=== PATIENT | male | born 1950 | race Caucasian/White ===

== ENCOUNTER → 2016-09-05 09:06 | Outpatient (CLI) | payer OTHER ==
[2015-09-12 13:05] VITALS: BMI 19.9
[~2016-09-05 09:06] MED LIST: ASPIRIN EC81 M1 PO; COREG 3.1253.125 MG PO; COZAAR25 MG PO; CYCLOBENZAPRINE10 MG PO; FUROSEMIDE20 MG PO; OMEPRAZOLE20 M1 PO; OXYCODONE HCL5 MG PO; PERCOCET 5-3251 TAB PO; POTASSIUM99 M1 PO; PROVENTIL HFA6.7 GM INH
== END | disposition home or self-care (01) ==
LOC: D.CT 09:06
DX: R10.9 Unspecified abdominal pain (principal); K55.9 Vascular disorder of intestine, unspecified

== ENCOUNTER → 2016-09-20 09:06 | Outpatient (CLI) | payer OTHER ==
[2015-09-12 13:05] VITALS: BMI 19.9
== END | disposition home or self-care (01) ==
LOC: D.MRI 09-18 09:00
DX: R11.0 Nausea (principal)

== ENCOUNTER 2017-01-06 11:36 | Day surgery (SDC) | payer OTHER ==
[~2017-01-06] VITALS: Ht 167.6 cm; Wt 52.3 kg
[2017-01-06 12:53] LABS: BASOPHILS 0.2 % (0-2); EOSINOPHILS 0.9 % (0-7); HEMATOCRIT 38.8 % (42.0-54.0); HEMOGLOBIN 13.7 g/dL (13.5-17.5); LYMPHOCYTES 34.8 % (15-50); MCH 35.8 pg (26.0-34.0); MCHC 35.3 g/dL (31.0-37.0); MCV 101.3 fL (80.0-100.0); MEAN PLATELET VOLUME 9.3 fL (7.4-10.4); MONOCYTES 5.6 % (2-11); NEUTROPHILS 58.5 % (40-80); RBC 3.83 10x6/uL (4.20-6.10); RDW 12.8 % (11.5-14.5); WBC 5.4 10x3/uL (4.8-10.8)
[2017-01-06 13:00] LABS: PLATELET COUNT 268 10x3/uL (130-400)
[2017-01-06] MEDS ORDERED: ALDACTONE25 MG PO (13:02)
[2017-01-06] MEDS ORDERED: METOPROLOL TART25 MG (13:02)
[2017-01-06 13:10] VITALS: BP 147/82; Ht 167.6 cm; Wt 52.3 kg
[2017-01-06 13:14] LABS: ALBUMIN 3.8 g/dL (3.4-5.0); ALKALINE PHOSPHATASE 106 U/L (46-116); ALT (SGPT) 19 U/L (10-68); BILIRUBIN - TOTAL 0.46 mg/dL (0.2-1.3); CALC OSMOLALITY 271 mosm/kg (275-300); CALCIUM 9.2 mg/dL (8.5-10.1); CARBON DIOXIDE 27.3 mmol/L (21.0-32.0); CHLORIDE - SERUM 102 mmol/L (98-107); CREATININE - SERUM 0.9 mg/dL (0.6-1.3); GLUCOSE 98 mg/dL (74-106); POTASSIUM - SERUM 3.9 mmol/L (3.5-5.1); PROTEIN - SERUM 6.8 g/dL (6.4-8.2); SODIUM 137 mmol/L (136-145); UREA NITROGEN 8 mg/dL (7-18); eGFR NON AFRICAN AMERICAN 90 mL/min (90-120)
[2017-01-06 13:42] LABS: INR 1.05 (0.85-1.17); PROTIME 13.6 SECONDS (11.6-15.0)
--- NOTE | 2017-01-06 16:03 | NUR ---
120 SECONDS FLUORO TIME AND 80 CC CONTRAST USED
--- NOTE | 2017-01-06 16:27 | NUR ---
NOTIED THAT PT HAS HEART PACER IN LEFT UPPER CHEST AND PACER SPIKES NOTIED ON MONITOR. HR IS 76 NSR
--- NOTE | 2017-01-06 17:28 | NUR ---
PATIENT WALKING AROUND ROOM WITHOUT DIZZINES, AMBULATES TO BATHROOM AND VOIDS IN TOILET. DENIES COMPLAINTS. PIV DC'D WITH TIP INTACT. PATIENT DRESSING IN PERSONAL CLOTHING
--- NOTE | 2017-01-06 17:50 | NUR ---
DISCHARGE INSTRUCTIONS REVIEWED WITH PATIENT. DISCHARGED HOME VIA WHEELCHAIR TO PRIVATE VEHICLE WITH BROTHER
== END 2017-01-06 17:50 | disposition home or self-care (01) ==
LOC: D.OPS 11:36
PROVIDERS: Internal Medicine Gastroenterology
DX: R10.11 Right upper quadrant pain (principal); F17.200 Nicotine dependence, unspecified, uncomplicated; I25.10 Atherosclerotic heart disease of native coronary artery without angina pectoris; I10 Essential (primary) hypertension; J44.9 Chronic obstructive pulmonary disease, unspecified; Z95.5 Presence of coronary angioplasty implant and graft; K21.9 Gastro-esophageal reflux disease without esophagitis; Z01.812 Encounter for preprocedural laboratory examination

== ENCOUNTER → 2017-04-30 12:40 | Outpatient (CLI) | payer OTHER ==
[2017-01-06 13:10] VITALS: BMI 18.6
[~2017-04-30 12:40] MED LIST changes: +ALDACTONE25 MG PO; +METOPROLOL TART25 MG
== END | disposition home or self-care (01) ==
LOC: D.CT 12:40
DX: R10.11 Right upper quadrant pain (principal)

== ENCOUNTER 2017-08-09 18:34 | Inpatient (IN) | payer OTHER ==
[~2017-08-09] VITALS: Ht 167.6 cm; Wt 50.0 kg
[2017-08-09 19:21] LABS: BASOPHILS 0.2 % (0-2); HEMATOCRIT 38.1 % (42.0-54.0); HEMOGLOBIN 13.6 g/dL (13.5-17.5); IMMATURE GRANULOCYTES 0.3 % (0-5); LYMPHOCYTES 11.7 % (15-50); MCH 35.1 pg (26.0-34.0); MCHC 35.7 g/dL (31.0-37.0); MCV 98.2 fL (80.0-100.0); MEAN PLATELET VOLUME 9.3 fL (7.4-10.4); MONOCYTES 7.2 % (2-11); NEUTROPHILS 79.6 % (40-80); PLATELET COUNT 314 10x3/uL (130-400); RBC 3.88 10x6/uL (4.20-6.10); RDW 13.2 % (11.5-14.5); WBC 12.9 10x3/uL (4.8-10.8)
[2017-08-09 20:52] LABS: ALBUMIN 3.6 g/dL (3.4-5.0); ALKALINE PHOSPHATASE 153 U/L (46-116); ALT (SGPT) 16 U/L (10-68); BILIRUBIN - TOTAL 0.52 mg/dL (0.2-1.3); CALC OSMOLALITY 272 mosm/kg (275-300); CALCIUM 9.6 mg/dL (8.5-10.1); CARBON DIOXIDE 25.8 mmol/L (21.0-32.0); CHLORIDE - SERUM 99 mmol/L (98-107); CREATININE - SERUM 0.7 mg/dL (0.6-1.3); GLUCOSE 108 mg/dL (74-106); POTASSIUM - SERUM 4.1 mmol/L (3.5-5.1); PROTEIN - SERUM 7.8 g/dL (6.4-8.2); SODIUM 137 mmol/L (136-145); UREA NITROGEN 6 mg/dL (7-18); eGFR NON AFRICAN AMERICAN > 90 mL/min (90-120)
[2017-08-09 21:02] LABS: PRO BNP 898 pg/mL (0-125); TROPONIN-I 0.042 ng/mL (0.000-0.060)
[2017-08-10 02:30] VITALS: BP 108/54
[2017-08-10 05:00] VITALS: BP 108/53
[2017-08-10 05:07] VITALS: BMI 18.6
[2017-08-10 09:07] VITALS: BP 142/67
[2017-08-10 12:51] VITALS: BP 113/52
[2017-08-10 16:38] LABS: CKMB 0.3 U/L (0.0-3.6); CREATINE KINASE 62 UL (21-232); TROPONIN-I < 0.017 ng/mL (0.000-0.060)
[2017-08-10 16:41] VITALS: BP 118/71
[2017-08-10 17:59] LABS: APPEARANCE CLEAR (CLEAR); BILIRUBIN NEGATIVE (NEGATIVE); COLOR YELLOW (YELLOW); GLUCOSE NEGATIVE (NEGATIVE); KETONE NEGATIVE (NEGATIVE); NITRITE NEGATIVE (NEGATIVE); PROTEIN NEGATIVE (NEGATIVE); SPECIFIC GRAVITY 1.005 (1.005-1.020); UROBILINOGEN NORMAL (NORMAL)
[2017-08-10 18:40] LABS: CALC OSMOLALITY 276 mosm/kg (275-300); CALCIUM 8.9 mg/dL (8.5-10.1); CARBON DIOXIDE 20.5 mmol/L (21.0-32.0); CHLORIDE - SERUM 105 mmol/L (98-107); CREATININE - SERUM 0.7 mg/dL (0.6-1.3); GLUCOSE 106 mg/dL (74-106); POTASSIUM - SERUM 3.7 mmol/L (3.5-5.1); SODIUM 140 mmol/L (136-145); eGFR NON AFRICAN AMERICAN > 90 mL/min (90-120)
[2017-08-10 18:48] LABS: UREA NITROGEN 8 mg/dL (7-18)
[2017-08-10 20:00] VITALS: BP 117/63
[2017-08-10 21:33] LABS: BASOPHILS 0.1 % (0-2); EOSINOPHILS 0.5 % (0-7); HEMATOCRIT 33.3 % (42.0-54.0); HEMOGLOBIN 11.9 g/dL (13.5-17.5); IMMATURE GRANULOCYTES 0.2 % (0-5); LYMPHOCYTES 23.3 % (15-50); MCH 34.8 pg (26.0-34.0); MCHC 35.7 g/dL (31.0-37.0); MCV 97.4 fL (80.0-100.0); MEAN PLATELET VOLUME 9.4 fL (7.4-10.4); MONOCYTES 9.1 % (2-11); NEUTROPHILS 66.8 % (40-80); PLATELET COUNT 332 10x3/uL (130-400); RBC 3.42 10x6/uL (4.20-6.10); RDW 13.6 % (11.5-14.5)
[2017-08-10 21:39] LABS: WBC 8.4 10x3/uL (4.8-10.8)
[2017-08-10 21:55] LABS: CKMB 0.2 U/L (0.0-3.6); CREATINE KINASE 81 UL (21-232); TROPONIN-I 0.019 ng/mL (0.000-0.060)
[2017-08-11 01:00] VITALS: BP 101/51
[2017-08-11 03:34] LABS: BASOPHILS 0.1 % (0-2); HEMOGLOBIN 11.4 g/dL (13.5-17.5); IMMATURE GRANULOCYTES 0.1 % (0-5); LYMPHOCYTES 25.9 % (15-50); MCH 34.9 pg (26.0-34.0); MCHC 35.6 g/dL (31.0-37.0); MCV 97.9 fL (80.0-100.0); MEAN PLATELET VOLUME 9.3 fL (7.4-10.4); MONOCYTES 9.6 % (2-11); NEUTROPHILS 63.3 % (40-80); PLATELET COUNT 337 10x3/uL (130-400); RBC 3.27 10x6/uL (4.20-6.10); RDW 13.6 % (11.5-14.5); WBC 9.1 10x3/uL (4.8-10.8)
[2017-08-11 04:00] VITALS: BP 145/78
[2017-08-11 04:00] LABS: CALC OSMOLALITY 276 mosm/kg (275-300); CALCIUM 8.6 mg/dL (8.5-10.1); CHLORIDE - SERUM 105 mmol/L (98-107); CKMB 0.4 U/L (0.0-3.6); CREATINE KINASE 104 UL (21-232); CREATININE - SERUM 0.7 mg/dL (0.6-1.3); GLUCOSE 105 mg/dL (74-106); SODIUM 140 mmol/L (136-145); TROPONIN-I 0.022 ng/mL (0.000-0.060); UREA NITROGEN 7 mg/dL (7-18); eGFR NON AFRICAN AMERICAN > 90 mL/min (90-120)
[2017-08-11 04:01] LABS: CARBON DIOXIDE 26.5 mmol/L (21.0-32.0); POTASSIUM - SERUM 2.8 mmol/L (3.5-5.1)
[2017-08-11 08:52] VITALS: BP 134/72
[2017-08-11 11:29] VITALS: BP 126/73
[2017-08-11 12:31] VITALS: Ht 167.6 cm; Wt 50.0 kg
[2017-08-11 16:15] VITALS: BP 141/78
== END 2017-08-11 18:28 | disposition home or self-care (01) | DRG 193 ==
LOC: D.ER 18:34 → D.EDHOLD 20:47 → D.M2 20:47
PROVIDERS: Emergency Medicine; Internal Medicine Cardiovascular Disease; Internal Medicine Nephrology
DX: J18.9 Pneumonia, unspecified organism (principal); J96.21 Acute and chronic respiratory failure with hypoxia; I50.23 Acute on chronic systolic (congestive) heart failure; J44.0 Chronic obstructive pulmonary disease with (acute) lower respiratory infection; J44.1 Chronic obstructive pulmonary disease with (acute) exacerbation; F17.203 Nicotine dependence unspecified, with withdrawal; I11.0 Hypertensive heart disease with heart failure; I25.10 Atherosclerotic heart disease of native coronary artery without angina pectoris; Z95.5 Presence of coronary angioplasty implant and graft; Z95.0 Presence of cardiac pacemaker; D64.9 Anemia, unspecified; F41.9 Anxiety disorder, unspecified

== ENCOUNTER 2019-08-22 15:18 | Emergency (ER) | payer OTHER ==
[2019-08-22 15:30] VITALS: Ht 167.6 cm
[2019-08-22 16:37] LABS: HEMATOCRIT 38.4 % (42.0-54.0); LYMPHOCYTES 30.9 % (15-50); MCHC 33.9 g/dL (31.0-37.0); MCV 100.5 fL (80.0-100.0); MEAN PLATELET VOLUME 9.1 fL (7.4-10.4); NEUTROPHILS 62.2 % (40-80); RBC 3.82 10x6/uL (4.20-6.10); RDW 14.6 % (11.5-14.5); WBC 5.6 10x3/uL (4.8-10.8)
[2019-08-22 16:38] LABS: PLATELET COUNT 253 10x3/uL (130-400)
[2019-08-22 16:51] LABS: CALC OSMOLALITY 276 mosm/kg (275-300); CALCIUM 9.6 mg/dL (8.5-10.1); CARBON DIOXIDE 26.4 mmol/L (21.0-32.0); CHLORIDE - SERUM 105 mmol/L (98-107); CREATININE - SERUM 1.1 mg/dL (0.6-1.3); GLUCOSE 104 mg/dL (74-106); POTASSIUM - SERUM 3.7 mmol/L (3.5-5.1); SODIUM 140 mmol/L (136-145); UREA NITROGEN 6 mg/dL (7-18); eGFR NON AFRICAN AMERICAN 71 mL/min (90-120)
[2019-08-22 16:52] LABS: APTT 34.3 SECONDS (22.8-39.4); INR 1.06 (0.85-1.17); PROTIME 13.7 SECONDS (11.6-15.0)
[2019-08-22 17:08] LABS: ALBUMIN 3.8 g/dL (3.4-5.0); ALKALINE PHOSPHATASE 124 U/L (30-120); ALT (SGPT) 17 U/L (10-68); AMYLASE - SERUM 21 U/L (25-115); BILIRUBIN - TOTAL 0.76 mg/dL (0.2-1.3); CKMB 1.9 U/L (0.0-3.6); CREATINE KINASE 124 UL (21-232); TROPONIN-I < 0.017 ng/mL (0.000-0.060)
[2019-08-22 17:09] LABS: LIPASE 21 U/L (73-393)
[2019-08-22] MEDS ORDERED: ZOFRAN ODT4 MG/UDTAB PO (17:15)
[2019-08-22 17:45] VITALS: BP 136/82
== END 2019-08-22 17:45 | disposition home or self-care (01) ==
LOC: D.ER 15:18
PROVIDERS: Family Medicine
DX: R11.0 Nausea (principal); D64.9 Anemia, unspecified; R10.13 Epigastric pain; I11.0 Hypertensive heart disease with heart failure; I50.9 Heart failure, unspecified; J44.9 Chronic obstructive pulmonary disease, unspecified

== ENCOUNTER 2019-09-13 07:25 | Observation (INO) | payer OTHER ==
[~2019-09-13] VITALS: Ht 167.6 cm; Wt 50.0 kg
[~2019-09-13 07:25] MED LIST changes: -METOPROLOL TART25 MG; +METOPROLOL TART25 MG PO; +ZOFRAN ODT4 MG/UDTAB PO
[2019-09-13 07:55] LABS: BASOPHILS 0.1 % (0-2); EOSINOPHILS 0.9 % (0-7); HEMATOCRIT 37.8 % (42.0-54.0); HEMOGLOBIN 13.5 g/dL (13.5-17.5); IMMATURE GRANULOCYTES 0.2 % (0-5); LYMPHOCYTES 19.8 % (15-50); MCH 33.8 pg (26.0-34.0); MCHC 35.7 g/dL (31.0-37.0); MCV 94.5 fL (80.0-100.0); MEAN PLATELET VOLUME 9.2 fL (7.4-10.4); MONOCYTES 8.3 % (2-11); NEUTROPHILS 70.7 % (40-80); PLATELET COUNT 277 10x3/uL (130-400); RDW 12.9 % (11.5-14.5); WBC 8.5 10x3/uL (4.8-10.8)
[2019-09-13 08:07] LABS: APTT 33.1 SECONDS (22.8-39.4); INR 1.04 (0.85-1.17); PROTIME 13.6 SECONDS (11.6-15.0)
[2019-09-13 08:08] LABS: CALC OSMOLALITY 250 mosm/kg (275-300); CALCIUM 9.2 mg/dL (8.5-10.1); CARBON DIOXIDE 26.5 mmol/L (21.0-32.0); CHLORIDE - SERUM 95 mmol/L (98-107); CREATININE - SERUM 0.9 mg/dL (0.6-1.3); GLUCOSE 110 mg/dL (74-106); POTASSIUM - SERUM 3.9 mmol/L (3.5-5.1); SODIUM 126 mmol/L (136-145); UREA NITROGEN 4 mg/dL (7-18); eGFR NON AFRICAN AMERICAN 89 mL/min (90-120)
[2019-09-13] MEDS ORDERED: COZAAR25 MG PO (08:13)
[2019-09-13 08:22] LABS: ALKALINE PHOSPHATASE 96 U/L (30-120); ALT (SGPT) 18 U/L (10-68); AMYLASE - SERUM 39 U/L (25-115); BILIRUBIN - TOTAL 0.59 mg/dL (0.2-1.3); CKMB 1.5 U/L (0.0-3.6); CREATINE KINASE 69 UL (21-232); MAGNESIUM - SERUM 1.6 mg/dL (1.8-2.4); PROTEIN - SERUM 6.9 g/dL (6.4-8.2)
[2019-09-13 08:23] LABS: LIPASE 31 U/L (73-393); TROPONIN-I < 0.017 ng/mL (0.000-0.060)
[2019-09-13 08:37] VITALS: BP 161/99
--- NOTE | 2019-09-13 09:38 | NUR ---
RECEIVED PT TO ROOM 2116 VIA WHEELCHAIR, PT A/O X4, RESP EVEN AND NONLABORED ON RA. RT FA IV INFUSING NS AT 100CC/HR. ORIENTED PT TO ROOM AND CALL LIGHT. WILL ASSESS PT AND START PLAN OF CARE.
[2019-09-13] MEDS ORDERED: FLOMAX0.4 MG PO (09:47)
[2019-09-13 10:09] VITALS: BMI 17.8
[2019-09-13 10:11] VITALS: Ht 167.6 cm; Wt 50.0 kg
--- NOTE | 2019-09-13 10:17 | NUR ---
PT C/O STILL HURTING AND THAT MORPHINE DID NOTHING FOR HIS PAIN. SPOKE WITH DUY NOGUERA AND NOTIFIED HER OF PT'S COMPLAINT. NEW ORDER TO D/C MORHINE AND START 0.5MG OF DILAUDID Q4PRN.
--- NOTE | 2019-09-13 10:19 | NUR ---
PT TO CT.
[2019-09-13 10:41] VITALS: BP 155/69
--- NOTE | 2019-09-13 10:51 | NUR ---
GAVE 0.5MG OF DILAUDID FOR PAIN LEVEL OF 8/10. PT DENIES ANY OTHER NEEDS AT THIS TIME. CALL LIGHT IN REACH, NAD NOTED, WILL CONTINUE TO MONITOR.
--- NOTE | 2019-09-13 12:51 | NUR ---
PT RESTING COMFORTABLY IN BED, DENIES ANY NEEDS AT THIS TIME.
[2019-09-13 13:14] VITALS: BP 114/67
[2019-09-13 14:36] LABS: CREATINE KINASE 62 UL (21-232); TROPONIN-I < 0.017 ng/mL (0.000-0.060)
--- NOTE | 2019-09-13 15:30 | NUR ---
0.5MG OF DIALUDID GIVEN FOR PAIN LEVEL OF 8/10. EKG DONE AND PLACED ON CHART. PT DENIES ANY OTHER NEEDS AT THIS TIME. CALL LIGHT IN REACH, DAUGHTER AT BEDSIDE, NAD NOTED, WILL CONTINUE TO MONITOR.
[2019-09-13 17:53] VITALS: BP 117/71
--- NOTE | 2019-09-13 18:10 | NUR ---
PT STATED THAT HE WANTED TO GO FOR A WALK, SO THIS NURSE UNHOOKED PT FROM IV. THEN I WAS NOTIFIED BY KENNEL SUPERVISOR THAT PT WAS OFF THE MONITOR AND PT WAS NO WHERE AROUND THE UNIT. WHEN PT CAME BACK TO ROOM I ASKED HIM IF HE HAD GONE OUTSIDE. PT STATED "YES" INFORMED PT THAT PER POLICY HE WAS NOT ALLOWED TO GO OUTSIDE. PT STATED " OH I DIDN'T KNOW". INFORMED PT THAT IF WANTED TO WALK HE COULD ONLY DO IT AROUND THE UNIT BUT WAS NOT ALLOWED TO GO OUTSIDE.
--- NOTE | 2019-09-13 19:00 | NUR ---
RECEIVED BEDSIDE REPORT. PATIENT IS ALERT AND ORIENTED, RESTING COMFORTABLY IN BED. RESPIRATIONS ARE EVEN AND UNLABORED. NO S/S OF DISTRESS. NO C/O PAIN. CALL LIGHT WITHIN REACH. WILL CPOC.
--- NOTE | 2019-09-13 19:30 | NUR ---
PATIENT CALLED [employer] SALES MANAGER LIGHT TO HAVE IV DISCONNECTED. DURING REPORT. WAS TOLD BY PREVIOUS NURSE THAT PATIENT ASKS TO BE DISCONNECTED AND GOES OUTSIDE TO SMOKE. I EDUCATED PATIENT ABOUT THE IMPORTANCE OF NOT SMOKING AND THE SIDE EFFECTS THAT HE IS AT RISK FOR BECAUSE HE IS WEARING A NICODERM PATCH. PATIENT WALKED OFF THE FLOOR.
[2019-09-13 20:22] VITALS: BP 106/67
[2019-09-13 21:06] LABS: CREATINE KINASE 67 UL (21-232); TROPONIN-I < 0.017 ng/mL (0.000-0.060)
[2019-09-14] VITALS: BP 102/53
[2019-09-14 02:10] LABS: CKMB 1.6 U/L (0.0-3.6); CREATINE KINASE 57 UL (21-232)
[2019-09-14 02:15] LABS: TROPONIN-I < 0.017 ng/mL (0.000-0.060)
[2019-09-14 04:00] VITALS: BP 114/62
[2019-09-14 06:35] LABS: BASOPHILS 0.2 % (0-2); EOSINOPHILS 1.5 % (0-7); HEMATOCRIT 33.7 % (42.0-54.0); HEMOGLOBIN 11.7 g/dL (13.5-17.5); IMMATURE GRANULOCYTES 0.2 % (0-5); LYMPHOCYTES 27.9 % (15-50); MCH 33.2 pg (26.0-34.0); MCHC 34.7 g/dL (31.0-37.0); MCV 95.7 fL (80.0-100.0); MEAN PLATELET VOLUME 9.3 fL (7.4-10.4); MONOCYTES 10.1 % (2-11); NEUTROPHILS 60.1 % (40-80); PLATELET COUNT 245 10x3/uL (130-400); RBC 3.52 10x6/uL (4.20-6.10); RDW 13.2 % (11.5-14.5)
[2019-09-14 06:39] LABS: WBC 5.2 10x3/uL (4.8-10.8)
--- NOTE | 2019-09-14 07:00 | NUR ---
RECEIVED REPORT. ASSUMED CARE OF PATIENT. PATIENT RESING WELL IN BED WITH EYES CLOSED. EASILY AROUSED. RESP EVEN AND UNLABORED. CALL LIGHT WITHIN REACH. PATIENT REMAIN ON TELEMETRY, PACED WITH RATE OF 75. NO DISTRESS. DENIES NEEDS AT THIS TIME.
[2019-09-14 07:19] LABS: ALBUMIN 3.2 g/dL (3.4-5.0); ALKALINE PHOSPHATASE 78 U/L (30-120); ALT (SGPT) 15 U/L (10-68); BILIRUBIN - TOTAL 0.48 mg/dL (0.2-1.3); CALC OSMOLALITY 255 mosm/kg (275-300); CALCIUM 8.4 mg/dL (8.5-10.1); CARBON DIOXIDE 24.1 mmol/L (21.0-32.0); CHLORIDE - SERUM 98 mmol/L (98-107); CREATININE - SERUM 0.8 mg/dL (0.6-1.3); GLUCOSE 83 mg/dL (74-106); POTASSIUM - SERUM 4.1 mmol/L (3.5-5.1); PROTEIN - SERUM 5.7 g/dL (6.4-8.2); SODIUM 129 mmol/L (136-145); eGFR NON AFRICAN AMERICAN > 90 mL/min (90-120)
[2019-09-14 07:21] LABS: UREA NITROGEN 6 mg/dL (7-18)
--- NOTE | 2019-09-14 08:31 | MORECARE ---
CASE MANAGEMENT DISCHARGE SUMMARY PATIENT: PHU HSIEH UNIT: [id number] ADM DATE: 09/13/19 AGE: 69 : 51 SEX: M ROOM/BED: D.2117 AUTHOR: HYACINTH MENDES PHYSICIAN: REFERRING PHYSICIAN: HEMAL GUTIERREZ MD DATE OF SERVICE: 09/14/19 Discharge Plan Patient Name: PHU HSIEH [facility] [facility] 1950 Planned Disposition: Home Anticipated Discharge Date: Discharge Date: Expected LOS: Initial Reviewer: [email or web address] Initial Review Date: 09/14/2019 Generated: 09/14/19 9:30 am DCPIA - Discharge Planning Initial Assessment Updated by [email or web address]: Pamela Pereira on 09/14/19 8:29 am * Is the patient Alert and Oriented? Yes * How many steps to enter\exit or inside your home? 06/12 flight * [facility] [place] * [facility] for short term medications * Preadmission Environment Home Alone * ADLs Independent * Equipment Oxygen * Other Equipment Portable oxygen only * List name and contact numbers for known caregivers / representatives who currently or will assist patient after discharge: Didi Hsieh [facility] - [phone] * Verbal permission to speak to the caregivers and representatives has been obtained from the patient. Yes * Community resources currently utilized [place] [facility] * Please name any agencies selected above. [facility] * Additional services required to return to the preadmission environment? No * Can the patient safely return to the preadmission environment? Yes * Has this patient been hospitalized within the prior 30 days at any hospital? No Patient Name: PHU HSIEH Page [id number] at 0831 All edits/amendments must be made on the electronic document DICTATION DATE: 09/14/19829 FUR CLIPPER: MARILIA 09/14/19829 RPT#: [id number] DC DATE: STATUS: ADM IN [facility] [address] [place] [address] END OF REPORT
--- NOTE | 2019-09-14 08:37 | MORECARE ---
CASE MANAGEMENT DISCHARGE SUMMARY PATIENT: PHU HSIEH UNIT: [id number] ADM DATE: 09/13/19 AGE: 69 : 51 SEX: M ROOM/BED: D.3984 AUTHOR: VAUGHN,DOC PHYSICIAN: REFERRING PHYSICIAN: HEMAL GUTIERREZ MD DATE OF SERVICE: 09/14/19 Discharge Plan Patient Name: PHU HSIEH Facility: [facility]:[place] : 1950 Planned Disposition: Home Anticipated Discharge Date: Discharge Date: Expected LOS: Initial Reviewer: [email or web address] Initial Review Date: 09/14/2019 Generated: 09/14/19 9:37 am Comments DCP- Discharge Planning Updated by [email or web address]: Pamela Pereira on 09/14/19 7:[address] Patient Name: PHU HSIEH Admission Status: ER Accout number: [id number] Admission Date: 09-13-2019 : 1950 Admission Diagnosis: Attending: CARLOTA Current LOS: 1 Anticipated DC Date: Planned Disposition: Home Primary Insurance: [employer]UM Discharge Planning Comments: CM met with patient to complete initial dc planning assessment. CM educated patient on the CM role and verbal consent given by patient to complete assessment. Patient lives at home alone. At discharge patient plans to return and feels this is a safe discharge. States his daughter will transport him home on discharge. CM discussed availability of home health, rehab services, and medical equipment. Patient denied known discharge needs at this time. He declines transfer to the [place]. States "I'm supposed to go home today." I spoke with Bev ([place] officer lieutenant) and Bev states they were already notified of admission by Dr. Bowden and patient was too unstable for transfer on admission. CM will continue to follow and will assist as needed with dc plans/needs. Proteomics Scientist: Pamela Pereira DCPIA - Discharge Planning Initial Assessment Updated by [email or web address]: Pamela Pereira on 09/14/19 8:29 am * Is the patient Alert and Oriented? Yes * How many steps to enter\\exit or inside your home? 06/12 flight * PCP [place] [facility] in [place] * [facility]acy [place] [facility] [place] for short term medications * Preadmission Environment Home Alone * ADLs Independent * Equipment Oxygen * Other Equipment Portable oxygen only * List name and contact numbers for known caregivers / representatives who currently or will assist patient after discharge: Didi Hsieh - R - [phone] * Verbal permission to speak to the caregivers and representatives has been obtained from the patient. Yes * Community resources currently utilized [facility] * Please name any agencies selected above. [place] [facility] * Additional services required to return to the preadmission environment? No * Can the patient safely return to the preadmission environment? Yes * Has this patient been hospitalized within the prior 30 days at any hospital? No Last DP export: 09/14/19 7:31 am Patient Name: PHU HSIEH Page [id number] at 0837 All edits/amendments must be made on the electronic document DICTATION DATE: 09/14/19836 SUPERVISOR BLOOMING MILL: MARILIA 09/14/19836 RPT#: [id number] DC DATE: STATUS: ADM IN [facility] [address] [place] [address] END OF REPORT
--- NOTE | 2019-09-14 09:04 | NUR ---
MEDICATED FOR PAIN AT THIS TIME. NO DISTRESS. NEW URINAL AND URINAL COLLECTION KIT PLACED IN ROOM
[2019-09-14 09:41] VITALS: BP 138/78
[2019-09-14 10:25] LABS: BILIRUBIN NEGATIVE (NEGATIVE); GLUCOSE NEGATIVE (NEGATIVE); KETONE NEGATIVE (NEGATIVE); NITRITE NEGATIVE (NEGATIVE); SPECIFIC GRAVITY 1.005 (1.005-1.020); UROBILINOGEN NORMAL (NORMAL)
--- NOTE | 2019-09-14 13:08 | EC ---
PATIENT:PHU RODRIGES DATE OF SERVICE: 09/13/19 SEX: M MEDICAL RECORD: [id number] DATE OF : [birth year] LOCATION:D.M2 D.211 AGE OF PATIENT: 69 ADMISSION DATE: 09/13/19 REFERRING PHYSICIAN: INTERPRETING PHYSICIAN: REGINALD CHEEMA MD ECHOCARDIOGRAM REPORT ECHO CHARGES 4 ECHO COMPLETE Date: 09/13/19 CLINICAL DIAGNOSIS: HTN ECHOCARDIOGRAPHIC MEASUREMENTS (adult normal given) AC root (d.<3.7cm) 2.4 cm LV Septum d (<1.2 cm> 1.4 cm Valve Excursion 1.7 cm LV Septum (systole) 1.7 cm Left Atria (s.<4.0cm> 2.4 cm LVPW d(<1.2cm) 1.2 cm RV (d.<2.3cm) 2.2 cm LVPW (sytole) 1.4 cm LV diastole(<5.6CM) 3.8 cm MV E-F(>70mm/sec) cm LV systole 2.6 cm LVOT Diameter 1.7 cm MV exc.(>10mm) cm Est.ejection fraction (50-75%) % DOPPLER: LVIT cm/sec A 76.0 cm/sec E 52.0 cm/sec LA cm/sec RVSP 26.0 mmHg LVOT 73.0 cm/sec AOP1/2T m/s Asc. Ao 112 cm/sec RVOT 59.0 cm/sec RA cm/sec PA 74.0 cm/sec AV Gradient Peak 5.0 mmHg AV Mean 2.4 mmHg AV Area 1.8 cm MV Gradient Peak 2.8 mmHg MV Mean 1.0 mmHg MV Area cm COMMENTS: Rn Manager: 1 ANNEL MAZARIEGOSOE Floors Buffer: 3 Dr. Zarate TAPE# PACS Pericardial Effusion N DATE OF SERVICE: Adequate 2D, color flow imaging, spectral Doppler, and M-Mode. LVH is present. LV internal dimension is normal. Wall motion is normal. EF is greater than or equal to 55%. Aortic valve is tricuspid. No evidence of stenosis by Doppler interrogation. Left atrium is normal at 3.5 cm. Mitral valve shows no prolapse. Trace MR. Right-sided chambers grossly normal. Trace TR. ECHOCARDIOGRAM REPORT [id number] PHU RODRIGES TRANSINT:[id number] Voice Confirmation ID: [id number] DOCUMENT ID: [id number] REGINALD CHEEMA MD at 1308 CC: [id number] DICTATION DATE: 09/14/19826 LIGHT RAIL TRAIN OPERATOR: 09/14/19 09 ADM IN [place] [id number] [place] [address]
[2019-09-14 13:32] VITALS: BP 135/80
--- NOTE | 2019-09-14 14:36 | NUR ---
MEDICATED FOR PAIN AT THIS TIME. NO DISTRESS.
[2019-09-14] MEDS ORDERED: FAMOTIDINE10 MG PO (15:17)
[2019-09-14] MEDS ORDERED: HYDROCODON-ACE1 EAC7 PO (15:18)
--- NOTE | 2019-09-14 15:20 | NUR ---
WRITTEN SCRIPT FOR NORCO AND PEPCID PLACED IN COMPUTER AND HARD COPY TO CHART
--- NOTE | 2019-09-14 16:30 | NUR ---
TELEMETRY REMOVED AND RETURNED TO EXTERNAL GRINDER TENDER. 20 GAUGE IV REMOVED FROM RIGHT WRIST AREA. CATHETER TIP INTACT. NO BLEEDING FROM SITE. 2X2 GAUZE APPLIED AND SECURED WITH BANDAID.
--- NOTE | 2019-09-14 16:40 | NUR ---
DISCHARGE INSTRUCTIONS PROVIDED TO PATIENT AND HIS DAUGHTER. PATIENT VERBALIZED UNDERSTANDING OF ALL INSTUCTIONS PROVIDED WITH TEACHBACK METHOD.
--- NOTE | 2019-09-14 16:42 | NUR ---
HARD SCRIPT PROVIDED TO PATIENT FOR NORCO 5/325MG. PATIENT STATES HE HAS A [facility] CONTRACT WITH THE [facility]. INFORMED PATIENT THAT THIS IS A HARD SCRIPT, WHEN HE TAKES IT TO THE PHARMACY, THE PATIENT HAS THE OPTION TO FILL THE NORCO AND PEPCID OR ONLY OPT TO HAVE THE PEPCID FILLED. THE HARD SCRIPT GIVEN TO THE PATIENT HAS NORCO AND PEPCID. PATIENT VERBALIZED HIS UNDERSTANDING THAT HE HAS THE RIGHT TO REFUSE TO HAVE THE NORCO FILLED.
--- NOTE | 2019-09-14 16:55 | NUR ---
PATIENT LEFT UNIT WITH ALL PERSONAL BELONGINGS. PATIENT DISCHARGED TO HOME WITH HIS DAUGHER. NO DISTRESS UPON LEAVING UNIT. PATIENT THANKED THIS INTERN BRAND FOR CARES RENDERED.
--- NOTE | 2019-09-15 09:22 | MORECARE ---
CASE MANAGEMENT DISCHARGE SUMMARY PATIENT: PHU HSIEH UNIT: [id number] ADM DATE: 09/13/19 AGE: 69 : 51 SEX: M ROOM/BED: D.6873 AUTHOR: VAUGHN,DOC PHYSICIAN: REFERRING PHYSICIAN: HEMAL GUTIERREZ MD DATE OF SERVICE: 09/15/19 Discharge Plan Patient Name: PHU HSIEH Facility: [facility]:[place] : 1950 Planned Disposition: Home Anticipated Discharge Date: Discharge Date: 09/14/2019 Expected LOS: Initial Reviewer: [email or web address] Initial Review Date: 09/14/2019 Generated: 09/15/19 10:22 am Comments DCP- Discharge Planning Updated by [email or web address]: Pamela Pereira on 09/14/19 7:[address] Patient Name: PHU HSIEH Admission Status: ER Accout number: [id number] Admission Date: 09-13-2019 : 1950 Admission Diagnosis: Attending: CARLOTA Current LOS: 1 Anticipated DC Date: Planned Disposition: Home Primary Insurance: [employer]UM Discharge Planning Comments: CM met with patient to complete initial dc planning assessment. CM educated patient on the CM role and verbal consent given by patient to complete assessment. Patient lives at home alone. At discharge patient plans to return and feels this is a safe discharge. States his daughter will transport him home on discharge. CM discussed availability of home health, rehab services, and medical equipment. Patient denied known discharge needs at this time. He declines transfer to the [place]. States "I'm supposed to go home today." I spoke with Bev ([place] superintendent tests) and Bev states they were already notified of admission by Dr. Bowden and patient was too unstable for transfer on admission. CM will continue to follow and will assist as needed with dc plans/needs. Pick Pulling Machine Tender: Pamela Pereira DCPIA - Discharge Planning Initial Assessment Updated by [email or web address]: Pamela Pereira on 09/14/19 8:29 am * Is the patient Alert and Oriented? Yes * How many steps to enter\\exit or inside your home? 06/12 flight * [facility] [place] * [facility]acy [facility] for short term medications * Preadmission Environment Home Alone * ADLs Independent * Equipment Oxygen * Other Equipment Portable oxygen only * List name and contact numbers for known caregivers / representatives who currently or will assist patient after discharge: Didi Hsieh - R - [phone] * Verbal permission to speak to the caregivers and representatives has been obtained from the patient. Yes * Community resources currently utilized [facility] * Please name any agencies selected above. [place] [facility] * Additional services required to return to the preadmission environment? No * Can the patient safely return to the preadmission environment? Yes * Has this patient been hospitalized within the prior 30 days at any hospital? No Last DP export: 09/14/19 7:37 am Patient Name: PHU HSIEH Page [id number] at 0922 All edits/amendments must be made on the electronic document DICTATION DATE: 09/15/19921 ALIGNMENT MECHANIC: MARILIA 09/15/19921 RPT#: [id number] DC DATE:09/14/19 STATUS: DIS IN [facility] [address] [place] [address] END OF REPORT
== END 2019-09-14 16:55 | disposition home or self-care (01) ==
LOC: D.ER 07:25 → D.M2 08:55 → OBSVTIME 08:55 → D.M2 08:55 → D.ER 09:01 → D.M2 09-14 16:55
PROVIDERS: Family Medicine; ADMIT Family Medicine; ATTEND Family Medicine
DX: I25.110 Atherosclerotic heart disease of native coronary artery with unstable angina pectoris (principal); I11.0 Hypertensive heart disease with heart failure; I50.23 Acute on chronic systolic (congestive) heart failure; Z95.0 Presence of cardiac pacemaker; J43.9 Emphysema, unspecified; J96.21 Acute and chronic respiratory failure with hypoxia; F17.203 Nicotine dependence unspecified, with withdrawal; K21.9 Gastro-esophageal reflux disease without esophagitis; F41.9 Anxiety disorder, unspecified; E87.1 Hypo-osmolality and hyponatremia; E83.42 Hypomagnesemia; D64.9 Anemia, unspecified; G89.29 Other chronic pain

== ENCOUNTER 2019-09-18 17:49 | Emergency (ER) | payer OTHER ==
[~2019-09-18] VITALS: Ht 167.6 cm; Wt 50.0 kg
[~2019-09-18 17:49] MED LIST changes: +FAMOTIDINE10 MG PO; +FLOMAX0.4 MG PO; +HYDROCODON-ACE1 EAC7 PO
[2019-09-18 17:59] VITALS: Ht 167.6 cm; Wt 50.0 kg
[2019-09-18] MEDS ORDERED: CATAPRES0.1 MG PO (18:00)
[2019-09-18] MEDS ORDERED: COZAAR25 MG PO (18:01)
[2019-09-18] MEDS ORDERED: PROAIR HFA8.5 G1 (18:02)
[2019-09-18] MEDS ORDERED: SYMBICORT 16010.2 GM (18:02)
[2019-09-18] MEDS ORDERED: ATARAX 25 MG TA25 MG PO (18:03)
[2019-09-18] MEDS ORDERED: COLACE100 MG PO (18:03)
[2019-09-18] MEDS ORDERED: FLUTICASONE PRO16 GM (18:04)
[2019-09-18 18:25] LABS: BASOPHILS 0.2 % (0-2); EOSINOPHILS 3.1 % (0-7); HEMATOCRIT 33.6 % (42.0-54.0); HEMOGLOBIN 11.5 g/dL (13.5-17.5); IMMATURE GRANULOCYTES 0.2 % (0-5); LYMPHOCYTES 24.3 % (15-50); MCH 33.6 pg (26.0-34.0); MCHC 34.2 g/dL (31.0-37.0); MCV 98.2 fL (80.0-100.0); MEAN PLATELET VOLUME 8.8 fL (7.4-10.4); MONOCYTES 8.5 % (2-11); NEUTROPHILS 63.7 % (40-80); PLATELET COUNT 254 10x3/uL (130-400); RBC 3.42 10x6/uL (4.20-6.10); RDW 13.7 % (11.5-14.5); WBC 6.4 10x3/uL (4.8-10.8)
[2019-09-18 18:45] LABS: CALC OSMOLALITY 261 mosm/kg (275-300); CALCIUM 9.2 mg/dL (8.5-10.1); CARBON DIOXIDE 30.7 mmol/L (21.0-32.0); CHLORIDE - SERUM 97 mmol/L (98-107); CREATININE - SERUM 0.9 mg/dL (0.6-1.3); GLUCOSE 107 mg/dL (74-106); POTASSIUM - SERUM 3.6 mmol/L (3.5-5.1); SODIUM 132 mmol/L (136-145); UREA NITROGEN 4 mg/dL (7-18); eGFR NON AFRICAN AMERICAN 89 mL/min (90-120)
[2019-09-18 18:53] LABS: ALBUMIN 3.5 g/dL (3.4-5.0); ALKALINE PHOSPHATASE 105 U/L (30-120); ALT (SGPT) 17 U/L (10-68); AMYLASE - SERUM 30 U/L (25-115); BILIRUBIN - TOTAL 0.48 mg/dL (0.2-1.3); PROTEIN - SERUM 6.8 g/dL (6.4-8.2); TROPONIN-I < 0.017 ng/mL (0.000-0.060)
[2019-09-18 18:54] LABS: LIPASE 20 U/L (73-393)
[2019-09-18] MEDS ORDERED: BISACODYL5 MG PO (19:09)
[2019-09-18 20:39] VITALS: BP 142/82
== END 2019-09-18 20:40 | disposition home or self-care (01) ==
LOC: D.ER 17:49
PROVIDERS: Family Medicine
DX: R10.9 Unspecified abdominal pain (principal); K21.9 Gastro-esophageal reflux disease without esophagitis; J44.9 Chronic obstructive pulmonary disease, unspecified; I25.2 Old myocardial infarction; Z72.0 Tobacco use; K59.00 Constipation, unspecified

== ENCOUNTER 2019-10-29 10:26 | Day surgery (SDC) | payer OTHER ==
[~2019-10-29] VITALS: Ht 167.6 cm; Wt 50.5 kg
[~2019-10-29 10:26] MED LIST changes: +ATARAX 25 MG TA25 MG PO; +BISACODYL5 MG PO; +CATAPRES0.1 MG PO; +COLACE100 MG PO; +FLUTICASONE PRO16 GM; +PROAIR HFA8.5 G1; +SYMBICORT 16010.2 GM
[2019-10-29 11:07] LABS: CALC OSMOLALITY 274 mosm/kg (275-300); CALCIUM 9.5 mg/dL (8.5-10.1); CARBON DIOXIDE 30.3 mmol/L (21.0-32.0); CHLORIDE - SERUM 100 mmol/L (98-107); GLUCOSE 96 mg/dL (74-106); POTASSIUM - SERUM 4.8 mmol/L (3.5-5.1); SODIUM 138 mmol/L (136-145); UREA NITROGEN 11 mg/dL (7-18); eGFR NON AFRICAN AMERICAN 79 mL/min (90-120)
[2019-10-29] MEDS ORDERED: OXYCONTIN15 MG PO (11:38)
[2019-10-29 11:39] VITALS: Ht 167.6 cm; Wt 50.5 kg
[2019-10-29 11:42] LABS: BASOPHILS 0.2 % (0-2); EOSINOPHILS 1.4 % (0-7); HEMOGLOBIN 14.2 g/dL (13.5-17.5); IMMATURE GRANULOCYTES 0.5 % (0-5); LYMPHOCYTES 32.1 % (15-50); MCH 32.2 pg (26.0-34.0); MCV 97.5 fL (80.0-100.0); MEAN PLATELET VOLUME 10.2 fL (7.4-10.4); MONOCYTES 10.5 % (2-11); NEUTROPHILS 55.3 % (40-80); PLATELET COUNT 226 10x3/uL (130-400); RBC 4.41 10x6/uL (4.20-6.10); RDW 14.3 % (11.5-14.5); WBC 5.6 10x3/uL (4.8-10.8)
--- NOTE | 2019-10-29 14:38 | NUR ---
1307 IV DC'D. CATHETER TIP INTACT. NO BLEEDING AT SITE. BANDAID APPLIED. PT WILL HAVE A GES LATER WHEN IT IS AUTHORIZED THROUGH SCHEDULING. THEY WILL CALL HIM WITH DATE AND TIME FOR GES. PT ALSO TO MAKE HIS F/U APPT WITH DR PATEL WHEN THEIR OFFICE IS OPEN ON FRIDAY.
--- NOTE | 2019-11-01 11:44 | OP ---
PATIENT NAME: PHU RODRIGES MEDICAL RECORD: [id number] :[birth year] LOCATION:[facility] ADMISSION DATE: SURGEON: JOHNNY PATEL DO DATE OF OPERATION: 10/29/2019 PROCEDURE: EGD with biopsies. INDICATIONS FOR PROCEDURE: Right upper quadrant abdominal pain and chronic constipation. SCOPE: Vigilent video gastroscope. MEDICATIONS: Propofol 90 mg IV per anesthesia. ESTIMATED BLOOD LOSS: Minimal. COMPLICATIONS: None. FINDINGS AND DESCRIPTION OF PROCEDURE: Informed consent was given. The patient was made comfortable with the above medication. After reaching an adequate level of sedation by slow IV push, the patient was placed on his left side. The endoscope was advanced under direct visualization through the mouth to the second portion of the duodenum with ease. The entire esophagus appeared normal down to the GE junction. Cold forceps biopsies were taken from the midesophagus to rule out the presence of eosinophils. At the GE junction, there was evidence of LA class A reflux-induced esophagitis. The endoscope was advanced beyond the GE junction into the stomach and retroflexed to view the cardia, which appeared normal. The fundus of the stomach also appeared normal. Throughout the body of the stomach as well as the antrum and prepyloric regions, there was scattered erythema and granularity consistent with mild chronic gastritis. Cold forceps biopsies were taken from the antrum, incisura, and body of the stomach to submit for histopathology and to rule out the presence of H. pylori. The endoscope was advanced beyond the pylorus into the duodenum, which appeared normal to the second portion. Cold forceps biopsies were taken randomly in the duodenum to submit for histopathology. The endoscope was withdrawn from the patient. The patient tolerated the procedure well and there were no complications. IMPRESSIONS: 1. LA class A reflux-induced esophagitis. 2. Mild chronic gastritis changes. PLAN AND RECOMMENDATIONS: 1. Discharge home when recovery parameters are met. 2. Follow up biopsy specimen results. 3. GERD diet and reflux precautions. 4. Continue current medications. 5. We will arrange for a gastric emptying scan to rule out gastroparesis. If this is normal, I will order a CT angiogram of the abdomen to rule out vascular disease as a cause of the patient's abdominal pain. 6. Follow up in GI clinic in 4-6 weeks for further recommendations and workup as indicated once these studies have been completed. TRANSINT:[id number] Voice Confirmation ID: [id number] DOCUMENT ID: [id number] OPERATIVE REPORT [id number] PHU RODRIGES NATHAN A DO at 1144 CC: [id number] DICTATION DATE: 10/29/19 1231 PAYROLL OFFICER: 10/29/19 1609 [facility] 10/29/19 [place] [id number]
== END 2019-10-29 13:23 | disposition home or self-care (01) ==
LOC: D.OPS 10:26
PROVIDERS: ATTEND Internal Medicine Gastroenterology
DX: R10.11 Right upper quadrant pain (principal); K59.09 Other constipation

== ENCOUNTER → 2019-11-19 11:22 | Outpatient (CLI) | payer OTHER ==
[2019-10-29 11:39] VITALS: BMI 17.9
[~2019-11-19 11:22] MED LIST changes: +OXYCONTIN15 MG PO
== END | disposition home or self-care (01) ==
LOC: D.NM 11:22
PROVIDERS: ATTEND Internal Medicine Gastroenterology
DX: R10.9 Unspecified abdominal pain (principal)

== ENCOUNTER → 2019-12-31 10:51 | Outpatient (CLI) | payer OTHER ==
[2019-10-29 11:39] VITALS: BMI 17.9
== END | disposition home or self-care (01) ==
LOC: D.CT 10:51
PROVIDERS: ATTEND Internal Medicine Gastroenterology
DX: R10.11 Right upper quadrant pain (principal); K59.09 Other constipation

== ENCOUNTER → 2020-08-21 10:44 | Outpatient (CLI) | payer OTHER ==
[2020-03-19 05:36] VITALS: BMI 17.9
[2020-08-21 11:18] LABS: BASOPHILS 0.4 % (0-2); EOSINOPHILS 2.1 % (0-7); HEMATOCRIT 34.4 % (42.0-54.0); HEMOGLOBIN 11.8 g/dL (13.5-17.5); LYMPHOCYTE ABS# 1.41 10x3/uL (1.32-3.57); MCH 32.6 pg (26.0-34.0); MCHC 34.3 g/dL (31.0-37.0); MEAN PLATELET VOLUME 9.3 fL (7.4-10.4); MONOCYTES 14.2 % (2-11); NEUTROPHIL ABS# 2.64 10x3/uL (1.78-5.38); NEUTROPHILS 54.3 % (40-80); RBC 3.62 10x6/uL (4.20-6.10); RDW 14.8 % (11.5-14.5); WBC 4.9 10x3/uL (4.8-10.8)
[2020-08-21 11:23] LABS: CALC OSMOLALITY 268 mosm/kg (275-300); CALCIUM 9.6 mg/dL (8.5-10.1); CARBON DIOXIDE 25.2 mmol/L (21.0-32.0); CHLORIDE - SERUM 101 mmol/L (98-107); GLUCOSE 108 mg/dL (74-106); POTASSIUM - SERUM 4.2 mmol/L (3.5-5.1); SODIUM 135 mmol/L (136-145); UREA NITROGEN 6 mg/dL (7-18); eGFR NON AFRICAN AMERICAN 79 mL/min (90-120)
[2020-08-21 11:24] LABS: INR 1.14 (0.85-1.17); PROTIME 13.5 SECONDS (11.6-15.0)
[2020-08-21 11:32] LABS: PLATELET COUNT 364 10x3/uL (130-400)
== END | disposition home or self-care (01) ==
LOC: D.LAB 10:44
PROVIDERS: ATTEND Internal Medicine Cardiovascular Disease
DX: I42.9 Cardiomyopathy, unspecified (principal)